=== PATIENT | female | born 1960 | race Caucasian/White ===

== ENCOUNTER 2018-01-31 08:08 | Inpatient (IN) | payer MEDICAID ==
[2018-01-31] VITALS (14 sets, daily range): BP systolic 95–127; BP diastolic 54–64
[~2018-01-31] VITALS: Ht 152.4 cm; Wt 60.3 kg
[2018-01-31 08:42] LABS: HEMATOCRIT 21.9 % (37.0-47.0); MCH 37.3 pg (26.0-34.0); MCHC 36.7 g/dL (28.0-37.0); MCV 101.7 fL (80.0-100.0); MPV 6.1 fl. (7.2-11.1); NUCLEATED RBCS 0 /100WBC; RBC 2.15 mil/uL (4.20-5.00); RDW-CV 15.9 % (10.5-14.5); WBC 9.6 thou/uL (4.0-11.0)
[2018-01-31 08:55] LABS: ANION GAP 13 mmol/L (7-16); BUN 19 mg/dL (7-18); CALCIUM 8.8 mg/dL (8.5-10.1); CHLORIDE 107 mmol/L (98-107); CO2 20 mmol/L (21-32); GLUCOSE 103 mg/dL (70-99); SODIUM 140 mmol/L (136-145)
[2018-01-31 08:57] LABS: POTASSIUM 3.2 mmol/L (3.5-5.1)
[2018-01-31 08:58] LABS: APTT 27.8 Seconds (25.0-31.3); INR 1.4; PROTIME 14.2 Seconds (9.20-11.50)
[2018-01-31 09:06] LABS: ALBUMIN 3.2 g/dL (3.4-5.0); ALKALINE PHOSPHATASE 92 U/L (46-116); AMMONIA 50 umol/L (11-32); MAGNESIUM 1.1 mg/dL (1.8-2.4); SGOT 55 U/L (15-37); SGPT 28 U/L (30-65); TOTAL BILIRUBIN 9.6 mg/dL (<0.1-1.0); TOTAL PROTEIN 6.6 g/dL (6.4-8.2); TROPONIN-I LEVEL <0.06 ng/mL (<0.06)
[2018-01-31 09:37] LABS: BE -4.3 mmol/L (-2 to +3); HCO3 17.7 mmol/L (22.0-26.0); PO2 79.3 mmHg (75.0-100.0); pH 7.523 (7.340-7.450)
[2018-01-31 09:52] LABS: ABSOLUTE LYMPHOCYTES 0.5 thou/uL (0.8-5.3); ABSOLUTE MONOCYTES 0.2 thou/uL (0.0-1.2); ABSOLUTE NEUTROPHILS 8.9 thou/uL (1.6-8.1)
[2018-01-31 09:53] LABS: HYPOCHROMASIA 1+; PLATELET ESTIMATE DECREASED; POIKILOCYTOSIS 1+
[2018-01-31 10:09] LABS: PLATELET COUNT* 49 thou/uL (150-400)
--- NOTE | 2018-01-31 14:17 | EKG ---
[place] [address] ELECTROCARDIOGRAM REPORT Name: HILARY DUFF Room: [address] ADM IN .R.#: [id number] Admission: 01/31/18 Attend Phys: Obdulia Nowak MD Discharge: Date of : 58 Report #: [id number] THIS REPORT FOR: //name// [facility] ED Test Date: 2018-01-31 Test Time: 08:34:57 Pat Name: HILARY DUFF Department: Room: [facility] Gender: F Chronic Specialist: : 1960 Requested By: Radha Courtney Order Number: [id number] MD: Parish Luis Measurements Intervals [place] Rate: 111 P: 17 LA: 102 QRS: 2 QRSD: 83 T: 212 QT: 431 QTc: 586 Interpretive Statements Sinus tachycardia LVH w/ repol abnormalities, possible ischemia Prolonged QT interval No previous ECG available for comparison Electronically Signed On 01-31-2018 14:17:33 CDT by Parish Luis [email or web address] <ELECTRONICALLY SIGNED> By: Parish Luis MD, [facility] 01/31/18 1417 3 Parish Luis MD, [facility] /EPI
[2018-01-31 16:22] LABS: HEMATOCRIT 20.8 % (37.0-47.0); HEMOGLOBIN 7.4 gm/dL (12.0-15.0); MCH 36.1 pg (26.0-34.0); MCHC 35.4 g/dL (28.0-37.0); MCV 101.9 fL (80.0-100.0); MPV 6.3 fl. (7.2-11.1); RBC 2.04 mil/uL (4.20-5.00); RDW-CV 15.9 % (10.5-14.5)
[2018-01-31 16:40] LABS: CALCIUM 8.1 mg/dL (8.5-10.1); CREATININE 1.1 mg/dL (0.6-1.3)
[2018-01-31 19:24] LABS: AMP/METHAMP Negative (Negative); BARBITURATES Negative (Negative); BENZODIAZEPINES Negative (Negative); COCAINE Negative (Negative); METHADONE Negative (Negative); OPIATES POSITIVE (Negative); PCP Negative (Negative); THC Negative (Negative); URINE BLOOD TRACE (Negative); URINE CLARITY CLEAR; URINE COLOR DARK YELLOW; URINE GLUCOSE-RANDOM TRACE (Negative); URINE KETONES TRACE (Negative); URINE LEUKOCYTES-REFLEX NEGATIVE (Negative); URINE PROTEIN TRACE (Negative)
[2018-01-31 19:27] LABS: ICTOTEST (BILI CONFIRMATORY) Positive (Negative); URINE BILIRUBIN 2+ (Negative); URINE NITRITE-REFLEX POSITIVE (Negative)
[2018-01-31 19:28] LABS: SQUAMOUS 0-3 Few /LPF (0-3)
[2018-01-31 19:29] LABS: BACTERIA-REFLEX >30 Many /HPF (None Seen); CRYSTALS None Seen /LPF (None Seen); MUCUS None Seen strn/LPF (None Seen); URINE RBC 0-2 Rare /HPF (0-2)
[2018-01-31 19:30] LABS: CASTS None Seen /LPF (None Seen); URINE WBC-REFLEX None Seen /HPF (0-5)
[2018-02-01] VITALS (23 sets, daily range): BP systolic 84–109; BP diastolic 41–62
[2018-02-01 05:27] LABS: HEMATOCRIT 21.3 % (37.0-47.0); HEMOGLOBIN 7.4 gm/dL (12.0-15.0); MCH 35.9 pg (26.0-34.0); MCHC 34.9 g/dL (28.0-37.0); MCV 102.9 fL (80.0-100.0); MPV 6.9 fl. (7.2-11.1); RBC 2.07 mil/uL (4.20-5.00); RDW-CV 16.1 % (10.5-14.5); WBC 27.5 thou/uL (4.0-11.0)
[2018-02-01 05:44] LABS: ALBUMIN 2.7 g/dL (3.4-5.0); CREATININE 1.1 mg/dL (0.6-1.3); MAGNESIUM 1.9 mg/dL (1.8-2.4); POTASSIUM 3.7 mmol/L (3.5-5.1); TOTAL BILIRUBIN 9.6 mg/dL (<0.1-1.0); TOTAL PROTEIN 5.7 g/dL (6.4-8.2)
[2018-02-02] VITALS (18 sets, daily range): BP systolic 96–148; BP diastolic 51–71
[2018-02-02 04:42] LABS: MCH 36.2 pg (26.0-34.0); MCV 100.6 fL (80.0-100.0); RBC 1.75 mil/uL (4.20-5.00); RDW-CV 16.3 % (10.5-14.5); WBC 16.5 thou/uL (4.0-11.0)
[2018-02-02 04:56] LABS: ALBUMIN 2.5 g/dL (3.4-5.0); CALCIUM 8.2 mg/dL (8.5-10.1); CREATININE 0.9 mg/dL (0.6-1.3); MAGNESIUM 1.9 mg/dL (1.8-2.4); POTASSIUM 3.5 mmol/L (3.5-5.1); TOTAL BILIRUBIN 8.1 mg/dL (<0.1-1.0); TOTAL PROTEIN 5.6 g/dL (6.4-8.2)
[2018-02-02 05:30] LABS: HEMOGLOBIN 6.3 gm/dL (12.0-15.0)
[2018-02-02 05:31] LABS: HEMATOCRIT 17.6 % (37.0-47.0)
--- NOTE | 2018-02-02 07:01 | CON ---
[address] [address] CONSULTATION Name: HILARY DUFF Room: [address] IN M.R.#: [id number] Admission: 01/31/18 Attend Phys: Obdulia Nowak MD Discharge: Date of : 58 Report #: [id number] THIS REPORT FOR: //name// CC: FAM unknown Obdulia Nowak [facility] DATE OF SERVICE: 02/01/2018 INFECTIOUS DISEASE CONSULTATION ATTENDING PHYSICIAN: Dr. Nowak. REASON FOR EVALUATION: Gram-negative septicemia. HISTORY OF PRESENT ILLNESS: Chart reviewed, patient examined. This is a 57-year-old woman with end-stage liver disease, presented with abdominal related pain and discomfort as well as fairly profound encephalopathy. She had gone to bed the night before, woke up, generally not feeling well. Did have associated fevers, although she was awake. She was not responsive. Evaluation noted to be jaundiced. Lactic acid was elevated as high as 4.0. CBC show white count increased to 27.5. Blood cultures were collected as part of the admission and now with 1 out of 2 growth of gram-negative rods and started empirically on ceftriaxone and metronidazole. She admits to some moderate degree of abdominal related pain. She is mildly encephalopathic, I believe still. ALLERGIES: None. MEDICATIONS: Include lactulose, fentanyl, rifaximin, Flagyl, ceftriaxone, pantoprazole. PAST MEDICAL HISTORY: History of cirrhosis, apparently on the bases of ethanol although she abstained since 03/2017. She is currently on track for hepatic transplant. SOCIAL HISTORY: No illicit drug use. No tobacco use. FAMILY HISTORY: Noncontributory. REVIEW OF SYSTEMS: Significant pulmonary-related complaints. PHYSICAL EXAMINATION: GENERAL: She is jaundiced, appears chronically ill. She is pleasant, cooperative. VITAL SIGNS: Temperature 98.0, pulse 90, respirations 16, blood pressure 95/48. SKIN: [place] [address] CONSULTATION Name: HILARY DUFF Room: [address] IN [facility].#: [id number] Admission: 01/31/18 Attend Phys: Obdulia Nowak MD Discharge: Date of : 58 Report #: [id number] NECK: Supple. LUNGS: Few scattered crackles at the bases. HEART: Borderline tachycardic, regular. I do not appreciate a murmur. ABDOMEN: Distended, consistent with ascites. There is some tenderness, although there are no peritoneal signs. GENITOURINARY: Deferred. RECTAL: Deferred. LABORATORY DATA: Ultrasound: No evidence of portal hepatic vein thrombosis. No significant ascites. Electrolytes: Sodium 143, potassium 3.7, chloride 111, bicarbonate is 19, anion gap of 13. BUN and creatinine 28 and 1.1. AST of 47, ALT of 2.8, total bilirubin of 9.6, albumin of 2.7, total protein 5.7, ammonia less than 10. CBC: White count of 27.5, H and H 7.4 and 21.3, platelets of 46. Blood cultures now 2 out of 2 with gram-negative rods. Urinalysis: No white cells seen, greater than 30 bacteria. ASSESSMENT AND PLAN: Gram-negative septicemia, unclear source. Biliary tract certainly would be a consideration. I think it is likely genitourinary tract source. We will continue current therapy. It seems as if she has responded to at least some degree. If would worsen, would broaden gram-negative coverage. We will await those and may give us the clue as to the site of origin. She certainly remains tenuous. We have to monitor expectantly. I think lot of the lab abnormalities may be chronic such as the anemia, thrombocytopenia due to the liver failure. I have discussed with the patient and her mother. <ELECTRONICALLY SIGNED> By: Luis Enrique Urbano MD 02/02/18 0701 1525 [id number] Urbano MD /nt
[2018-02-03] VITALS: BP 125/67
[2018-02-03 04:00] VITALS: BP 115/66
[2018-02-03 04:54] LABS: HEMOGLOBIN 7.7 gm/dL (12.0-15.0); MCHC 36.7 g/dL (28.0-37.0); MCV 98.1 fL (80.0-100.0); MPV 6.7 fl. (7.2-11.1); RBC 2.14 mil/uL (4.20-5.00); RDW-CV 15.6 % (10.5-14.5); WBC 8.3 thou/uL (4.0-11.0)
[2018-02-03 06:53] LABS: ALBUMIN 2.4 g/dL (3.4-5.0); CALCIUM 8.1 mg/dL (8.5-10.1); CREATININE 0.7 mg/dL (0.6-1.3); MAGNESIUM 1.6 mg/dL (1.8-2.4); POTASSIUM 3.4 mmol/L (3.5-5.1); TOTAL BILIRUBIN 7.2 mg/dL (<0.1-1.0); TOTAL PROTEIN 5.3 g/dL (6.4-8.2)
[2018-02-03 07:59] VITALS: BP 121/75
[2018-02-03 11:49] VITALS: BP 116/70
[2018-02-03 15:44] VITALS: BP 113/67
[2018-02-03 19:20] VITALS: BP 128/80
[2018-02-03 21:01] LABS: MAGNESIUM 1.4 mg/dL (1.8-2.4); POTASSIUM 3.6 mmol/L (3.5-5.1)
[2018-02-04] VITALS: BP 118/68
[2018-02-04 04:00] VITALS: BP 120/73
[2018-02-04 04:59] LABS: HEMATOCRIT 21.5 % (37.0-47.0); HEMOGLOBIN 8.1 gm/dL (12.0-15.0); MCH 36.1 pg (26.0-34.0); MCHC 37.6 g/dL (28.0-37.0); MCV 96.1 fL (80.0-100.0); MPV 6.3 fl. (7.2-11.1); RBC 2.24 mil/uL (4.20-5.00); RDW-CV 15.9 % (10.5-14.5); WBC 9.3 thou/uL (4.0-11.0)
[2018-02-04 06:09] LABS: ALBUMIN 2.5 g/dL (3.4-5.0); CALCIUM 7.9 mg/dL (8.5-10.1); CREATININE 0.7 mg/dL (0.6-1.3); MAGNESIUM 1.4 mg/dL (1.8-2.4); POTASSIUM 3.5 mmol/L (3.5-5.1); TOTAL BILIRUBIN 7.2 mg/dL (<0.1-1.0)
[2018-02-04 08:15] VITALS: BP 116/65
[2018-02-04 12:00] VITALS: BP 109/67
[2018-02-04 15:46] VITALS: BP 116/67
[2018-02-04 19:20] VITALS: BP 110/71
[2018-02-05] VITALS: BP 123/79
[2018-02-05 04:00] VITALS: BP 123/76
[2018-02-05 04:35] LABS: HEMOGLOBIN 7.9 gm/dL (12.0-15.0); MCH 35.8 pg (26.0-34.0); MCHC 37.6 g/dL (28.0-37.0); MCV 95.3 fL (80.0-100.0); MPV 6.8 fl. (7.2-11.1); RBC 2.21 mil/uL (4.20-5.00); WBC 8.5 thou/uL (4.0-11.0)
[2018-02-05 06:26] LABS: ALBUMIN 2.6 g/dL (3.4-5.0); CALCIUM 8.1 mg/dL (8.5-10.1); CREATININE 0.9 mg/dL (0.6-1.3); MAGNESIUM 1.4 mg/dL (1.8-2.4); POTASSIUM 3.4 mmol/L (3.5-5.1); TOTAL BILIRUBIN 6.8 mg/dL (<0.1-1.0); TOTAL PROTEIN 5.6 g/dL (6.4-8.2)
[2018-02-05 08:15] VITALS: BP 124/78
--- NOTE | 2018-02-05 11:22 | CON ---
[address] [address] CONSULTATION Name: HILARY DUFF Room: [address] IN M.R.#: [id number] Admission: 01/31/18 Attend Phys: Obdulia Nowak MD Discharge: Date of : 58 Report #: [id number] THIS REPORT FOR: //name// CC: FAM unknown Obdulia Nowak [facility] HISTORY OF PRESENT ILLNESS: This is a 57-year-old female with past medical history of end-stage liver disease complicated by encephalopathy, who was brought in because of altered mental status. Although the patient is alert and awake, she is unable to answer questions and there is no family at bedside, therefore history has been me mostly obtained from the chart. It appears that the patient was brought in, as she was acting more confused than her baseline. Her mother who was here previously also reported she was experiencing fevers. PAST MEDICAL HISTORY: As mentioned above. The patient has a history of end-stage liver disease complicated by encephalopathy. The cause of the end-stage liver disease is unknown. I am unable to record any other past medical, social or family history due to the patient's mental status. REVIEW OF SYSTEMS: Unable to obtain review of systems because of the patient's mental status. PHYSICAL EXAMINATION: VITAL SIGNS: T-max of 39.6, otherwise temperature at the time of examination 37.1, pulse 101, respirations 19, blood pressure 120/60, pulse ox 99%. GENERAL: The patient is awake, but unable to respond as to where she is or the time and date. HEENT: Sclerae are icteric. Pupils are equal, round, reactive to light and accommodation. LUNGS: Clear to auscultation. CARDIOVASCULAR: Rate and rhythm regular, S1, S2 present. ABDOMEN: Soft, distended. Mild fluid thrill is present. EXTREMITIES: Warm. There is pitting edema bilaterally. Asterixis present. LABORATORY DATA: Sodium 144, potassium 3.0, chloride 110, bicarbonate 22, BUN 21, creatinine 1.1, total bilirubin 9.6, AST 55, ALT 28, alkaline phosphatase 92. WBC count 18.0, hemoglobin 7, hematocrit 20.8, platelets 37. Creatinine 1.4. IMAGING DATA: Abdominal ultrasound demonstrates small amount of ascites. Chest x-ray demonstrates no acute cardiopulmonary process. Head CT did not show any acute intracranial abnormality. ASSESSMENT AND PLAN: A 57-year-old female with past medical history of end-stage liver disease complicated by encephalopathy and ascites. I would place the patient on rifaximin and lactulose for the encephal[place] [address] CONSULTATION Name: HILARY DUFF Room: [address] IN M.R.#: [id number] Admission: 01/31/18 Attend Phys: bOdulia Nowak MD Discharge: Date of : 58 Report #: [id number] with broad-spectrum antibiotic coverage, blood cultures. I would perform abdominal ultrasound with Dopplers to rule out portal vein thrombosis. Abdominal paracentesis is also recommended to rule out spontaneous bacterial peritonitis. Continue to monitor the patient clinically. <ELECTRONICALLY SIGNED> By: Bran Mukherjee MD 02/05/18 1122 [id number] Mukherjee MD /nt
[2018-02-05 12:08] VITALS: BP 118/68
[2018-02-05 16:07] VITALS: BP 114/73
[2018-02-05 16:48] LABS: MAGNESIUM 1.4 mg/dL (1.8-2.4); POTASSIUM 3.5 mmol/L (3.5-5.1)
[2018-02-05 20:01] VITALS: BP 121/70
[2018-02-06] VITALS: BP 107/67
[2018-02-06 04:00] VITALS: BP 116/77
[2018-02-06 05:38] LABS: HEMATOCRIT 22.7 % (37.0-47.0); HEMOGLOBIN 8.2 gm/dL (12.0-15.0); MCH 35.4 pg (26.0-34.0); MCHC 36.4 g/dL (28.0-37.0); MCV 97.2 fL (80.0-100.0); MPV 6.5 fl. (7.2-11.1); RBC 2.33 mil/uL (4.20-5.00); RDW-CV 15.8 % (10.5-14.5); WBC 7.6 thou/uL (4.0-11.0)
[2018-02-06 06:46] LABS: CALCIUM 8.1 mg/dL (8.5-10.1); CREATININE 0.7 mg/dL (0.6-1.3); POTASSIUM 4.2 mmol/L (3.5-5.1)
[2018-02-06 09:11] VITALS: BP 130/75
[2018-02-06] MEDS ORDERED: ALDACTONE100 MG PO (10:49)
[2018-02-06] MEDS ORDERED: BENTYL 10 MG CA10 M1 PO (10:50)
[2018-02-06] MEDS ORDERED: FOLIC ACID1 MG PO (10:50)
[2018-02-06] MEDS ORDERED: CONSTULOSE10 GM/152 PO (10:51)
[2018-02-06] MEDS ORDERED: LASIX 40 MG TAB40 M2 PO (10:51)
[2018-02-06] MEDS ORDERED: PROTONIX40 M1 PO (10:52)
[2018-02-06] MEDS ORDERED: MAGOX 400400 MG PO (10:52)
[2018-02-06] MEDS ORDERED: KLOR-CON 1010 MEQ PO (10:53)
[2018-02-06] MEDS ORDERED: MULTIVITAMINS1 EAC7 PO (10:54)
[2018-02-06] MEDS ORDERED: CEFDINIR300 MG PO (11:24)
[2018-02-06] MEDS ORDERED: XIFAXAN550 M1 PO (11:25)
[2018-02-06] MEDS ORDERED: GABAPENTIN 100100 MG PO (11:36)
[2018-02-06] MEDS ORDERED: NORCO 5-325 TA1 EACH PO (11:36)
[2018-02-06 12:05] VITALS: BP 130/75
== END 2018-02-06 12:46 | disposition home or self-care (01) | DRG 871 ==
LOC: M.ERS 08:08 → M.TBA-ER 10:40 → M.ICU 10:40 → M.2W 02-02 12:31
PROVIDERS: Internal Medicine; Personal Emergency Response Attendant; ADMIT Internal Medicine
PROC: 30233N1 Transfusion of Nonautologous Red Blood Cells into Peripheral Vein, Percutaneous Approach (ICD-10-PCS; principal; 2018-02-02)
DX: A41.51 Sepsis due to Escherichia coli [E. coli] (principal); G92 Toxic encephalopathy; K70.31 Alcoholic cirrhosis of liver with ascites; K70.40 Alcoholic hepatic failure without coma; R33.9 Retention of urine, unspecified; K70.11 Alcoholic hepatitis with ascites; Z23 Encounter for immunization

== ENCOUNTER 2020-11-14 08:59 | Inpatient (IN) | payer MEDICARE, MEDICAID ==
[~2020-11-14] VITALS: Ht 152.4 cm; Wt 48.1 kg
[~2020-11-14 08:59] MED LIST: ALDACTONE100 MG PO; BENTYL 10 MG CA10 M1 PO; CEFDINIR300 MG PO; CONSTULOSE10 GM/152 PO; FOLIC ACID1 MG PO; GABAPENTIN 100100 MG PO; KLOR-CON 1010 MEQ PO; LASIX 40 MG TAB40 M2 PO; MAGOX 400400 MG PO; MULTIVITAMINS1 EAC7 PO; NORCO 5-325 TA1 EACH PO; PROTONIX40 M1 PO; XIFAXAN550 M1 PO
[2020-11-14 09:02] VITALS: BP 106/59
[2020-11-14 09:38] LABS: ABSOLUTE EOSINOPHILS 0.1 thou/uL (0.0-0.7); ABSOLUTE LYMPHOCYTES 0.5 thou/uL (0.8-5.3); ABSOLUTE MONOCYTES 0.1 thou/uL (0.0-1.2); ABSOLUTE NEUTROPHILS 1.5 thou/uL (1.6-8.1); BASOPHILS 0.3 %; EOSINOPHILS 3.7 %; HEMATOCRIT 24.5 % (37.0-47.0); HEMOGLOBIN 9.1 gm/dL (12.0-15.0); MCH 35.4 pg (26.0-34.0); MCHC 37.3 g/dL (28.0-37.0); MCV 94.8 fL (80.0-100.0); MONOCYTES 5.8 %; MPV 7.2 fl. (7.2-11.1); NUCLEATED RBCS 0 /100WBC; POLYS 66.2 %; RBC 2.58 mil/uL (4.20-5.00); RDW-CV 17.1 % (10.5-14.5); WBC 2.2 thou/uL (4.0-11.0)
[2020-11-14 09:40] LABS: PLATELET COUNT* 25 thou/uL (150-400)
[2020-11-14 09:42] LABS: CALCIUM 8.5 mg/dL (8.5-10.1); CREATININE 1.1 mg/dL (0.6-1.3); POTASSIUM 4.6 mmol/L (3.5-5.1)
[2020-11-14 09:46] LABS: ALBUMIN 3.1 g/dL (3.4-5.0); TOTAL BILIRUBIN 4.2 mg/dL (<0.1-1.0); TOTAL PROTEIN 6.4 g/dL (6.4-8.2)
[2020-11-14 10:02] LABS: HYPOCHROMASIA 1+; PLATELET ESTIMATE DECREASED
[2020-11-14 10:03] LABS: ANISOCYTOSIS Occasional; MICROCYTES Occasional
[2020-11-14 10:45] LABS: APTT 31.5 Seconds (25.0-31.3); INR 1.4; PROTIME 14.3 Seconds (9.20-11.50)
[2020-11-14 11:21] LABS: URINE BILIRUBIN NEGATIVE (Negative); URINE BLOOD NEGATIVE (Negative); URINE CLARITY CLEAR; URINE COLOR YELLOW; URINE GLUCOSE-RANDOM NEGATIVE (Negative); URINE KETONES NEGATIVE (Negative); URINE LEUKOCYTES NEGATIVE (Negative); URINE NITRITE NEGATIVE (Negative); URINE PROTEIN NEGATIVE (Negative)
[2020-11-14 11:31] LABS: AMP/METHAMP Negative (Negative); BARBITURATES Negative (Negative); BENZODIAZEPINES Negative (Negative); COCAINE Negative (Negative); METHADONE Negative (Negative); OPIATES Negative (Negative); PCP Negative (Negative); THC Negative (Negative)
[2020-11-14 15:45] VITALS: BP 109/61
[2020-11-14] MEDS ORDERED: AUGMENTIN 875-1 EACH PO (18:36)
[2020-11-15 01:40] VITALS: BP 109/61
[2020-11-15 02:20] VITALS: BP 110/59
[2020-11-15 06:23] VITALS: BP 126/67
[2020-11-15 09:45] VITALS: BP 120/66
[2020-11-15 11:17] LABS: CALCIUM 8.4 mg/dL (8.5-10.1); POTASSIUM 3.8 mmol/L (3.5-5.1)
[2020-11-15 12:53] LABS: ABSOLUTE EOSINOPHILS 0.1 thou/uL (0.0-0.7); ABSOLUTE LYMPHOCYTES 0.8 thou/uL (0.8-5.3); ABSOLUTE MONOCYTES 0.3 thou/uL (0.0-1.2); ABSOLUTE NEUTROPHILS 2.5 thou/uL (1.6-8.1); WBC 3.7 thou/uL (4.0-11.0)
[2020-11-15 12:55] LABS: BASOPHILS 0.6 %; HEMOGLOBIN 9.6 gm/dL (12.0-15.0); LYMPHOCYTES 22.4 %; MCH 35.6 pg (26.0-34.0); MCV 96.2 fL (80.0-100.0); MONOCYTES 7.5 %; MPV 6.6 fl. (7.2-11.1); NUCLEATED RBCS 0 /100WBC; POLYS 66.5 %; RBC 2.71 mil/uL (4.20-5.00); RDW-CV 17.2 % (10.5-14.5)
[2020-11-15 12:57] LABS: PLATELET COUNT* 28 thou/uL (150-400)
[2020-11-15 14:15] VITALS: BP 132/69
[2020-11-15 18:00] VITALS: BP 155/79
[2020-11-15] MEDS ORDERED: FUROSEMIDE 20 M20 MG PO (21:56)
[2020-11-16] VITALS: BP 123/68
[2020-11-16 04:30] VITALS: BP 125/67
[2020-11-16 07:50] VITALS: BP 131/76
[2020-11-16 12:00] VITALS: BP 141/75
[2020-11-16 13:04] VITALS: BP 141/75
--- NOTE | 2020-11-16 13:56 | EKG ---
[place] [address] ELECTROCARDIOGRAM REPORT Name: HILARY DUFF Room: [address] ADM IN ..#: [id number] Admission: 11/14/20 Attend Phys: Waqas Spence Discharge: Date of : 58 Date of Service: 11/14/20 0906 Report #: [id number] THIS REPORT FOR: //name// [facility] ED Test Date: 2020-11-14 Test Time: 09:06:22 Pat Name: HILARY DUFF Department: Room: [facility] Gender: F Frit Maker: STUDENT : 1960 Requested By: Elvis Bear Order Number: [id number] MD: Hever Obrien Measurements Intervals [place] Rate: 66 P: 11 [place]: 160 QRS: 1 QRSD: 94 T: 21 QT: 432 QTc: 453 Interpretive Statements Sinus rhythm Abnormal R-wave progression, early transition Compared to ECG 01/31/2018 08:34:57 Sinus tachycardia no longer present Possible ischemia no longer present Prolonged QT interval no longer present Electronically Signed On 11-16-2020 13:56:09 CDT by Hever Obrien [email or web address] <ELECTRONICALLY SIGNED> By: Hever Obrien MD, FAC 11/16/20 1356 0906 0906 Hever Obrien MD, FAC /EPI
== END 2020-11-16 14:03 | disposition home or self-care (01) | DRG 871 ==
LOC: M.ERS 08:59 → M.2W 11:36 → M.TBA-ER 11:36 → M.2W 11-15 21:04
PROVIDERS: Emergency Medicine; ADMIT Internal Medicine; ATTEND Internal Medicine
DX: A41.9 Sepsis, unspecified organism (principal); J69.0 Pneumonitis due to inhalation of food and vomit; G93.41 Metabolic encephalopathy; D69.6 Thrombocytopenia, unspecified; E80.6 Other disorders of bilirubin metabolism; E88.09 Other disorders of plasma-protein metabolism, not elsewhere classified; K70.30 Alcoholic cirrhosis of liver without ascites; F10.10 Alcohol abuse, uncomplicated; Z20.822 Contact with and (suspected) exposure to COVID-19; Z79.899 Other long term (current) drug therapy

== ENCOUNTER 2020-11-30 20:46 | Inpatient (IN) | payer MEDICARE, MEDICAID ==
[~2020-11-30] VITALS: Ht 152.4 cm; Wt 52.6 kg
[~2020-11-30 20:46] MED LIST changes: +AUGMENTIN 875-1 EACH PO; +FUROSEMIDE 20 M20 MG PO
[2020-11-30 21:30] VITALS: BP 122/52
[2020-11-30 23:54] LABS: ABSOLUTE EOSINOPHILS 0.1 thou/uL (0.0-0.7); ABSOLUTE LYMPHOCYTES 0.6 thou/uL (0.8-5.3); ABSOLUTE MONOCYTES 0.3 thou/uL (0.0-1.2); ABSOLUTE NEUTROPHILS 2.2 thou/uL (1.6-8.1); BASOPHILS 0.3 %; EOSINOPHILS 1.9 %; HEMATOCRIT 25.2 % (37.0-47.0); HEMOGLOBIN 8.9 gm/dL (12.0-15.0); LYMPHOCYTES 18.1 %; MCH 34.7 pg (26.0-34.0); MCHC 35.4 g/dL (28.0-37.0); MCV 98.1 fL (80.0-100.0); MONOCYTES 8.3 %; MPV 6.9 fl. (7.2-11.1); NUCLEATED RBCS 0 /100WBC; POLYS 71.4 %; RBC 2.57 mil/uL (4.20-5.00); RDW-CV 15.5 % (10.5-14.5); WBC 3.1 thou/uL (4.0-11.0)
[2020-11-30 23:57] LABS: PLATELET COUNT* 20 thou/uL (150-400)
[2020-12-01] VITALS (8 sets, daily range): BP systolic 126–143; BP diastolic 67–81
[2020-12-01 00:03] LABS: APTT 30.6 Seconds (25.0-31.3); INR 1.4; PROTIME 14.3 Seconds (9.20-11.50)
[2020-12-01 00:13] LABS: BE 1.2 mmol/L (-2 to +3); PCO2 VENOUS 33.8 mmHg (41.0-51.0); PO2 VENOUS 141.4 mmHg (35.0-45.0)
[2020-12-01 00:16] LABS: CALCIUM 8.5 mg/dL (8.5-10.1); CREATININE 1.2 mg/dL (0.6-1.3)
[2020-12-01 00:21] LABS: INFLUENZA A ANTIGEN Negative (Negative); INFLUENZA B ANTIGEN Negative (Negative)
[2020-12-01 00:26] LABS: ALBUMIN 3.3 g/dL (3.4-5.0); DIRECT BILIRUBIN 1.9 mg/dL (<0.1-0.3); MAGNESIUM 1.6 mg/dL (1.8-2.4); TOTAL BILIRUBIN 5.3 mg/dL (<0.1-1.0); TOTAL PROTEIN 6.4 g/dL (6.4-8.2)
[2020-12-01 00:51] LABS: URINE BILIRUBIN NEGATIVE (Negative); URINE BLOOD NEGATIVE (Negative); URINE CLARITY CLEAR; URINE COLOR YELLOW; URINE GLUCOSE-RANDOM NEGATIVE (Negative); URINE KETONES NEGATIVE (Negative); URINE LEUKOCYTES-REFLEX NEGATIVE (Negative); URINE NITRITE-REFLEX NEGATIVE (Negative); URINE PROTEIN NEGATIVE (Negative); URINE SPECIFIC GRAVITY 1.015 (1.005-1.030)
[2020-12-01 00:57] LABS: AMP/METHAMP Negative (Negative); BARBITURATES Negative (Negative); BENZODIAZEPINES Negative (Negative); COCAINE Negative (Negative); METHADONE Negative (Negative); OPIATES Negative (Negative); PCP Negative (Negative); THC Negative (Negative)
--- NOTE | 2020-12-01 10:49 | EKG ---
[place] [address] ELECTROCARDIOGRAM REPORT Name: HILARY DUFF Room: [place] [address] ADM IN ..#: [id number] Admission: 12/01/20 Attend Phys: Waqas Spence Discharge: Date of : 58 Date of Service: 11/30/202120 Report #: [id number] THIS REPORT FOR: //name// [facility] ED Test Date: 2020-11-30 Test Time: 21:21:35 Pat Name: HILARY DUFF Department: Room: [facility] Gender: F Forest Firefighter: MAURO : 1960 Requested By: Jules Fitzgerald Order Number: [id number] MD: Parish Luis Measurements Intervals [place] Rate: 81 P: -9 DE: 155 QRS: 5 QRSD: 90 T: 44 QT: 380 QTc: 441 Interpretive Statements Sinus rhythm Borderline T abnormalities, anterior leads Baseline wander in lead(s) V5 Compared to ECG 11/14/2020 09:06:22 T-wave abnormality now present Electronically Signed On 12-01-2020 10:49:34 CDT by Parish Luis [email or web address] <ELECTRONICALLY SIGNED> By: Parish Luis MD, FAC 12/01/20 1049 20 20 Parish Luis MD, FAC /EPI
[2020-12-02 00:56] VITALS: BP 118/65
[2020-12-02 04:34] VITALS: BP 126/70
[2020-12-02 05:04] LABS: CALCIUM 8.4 mg/dL (8.5-10.1)
[2020-12-02 05:06] LABS: INR 1.3
[2020-12-02 05:10] LABS: HEMATOCRIT 23.3 % (37.0-47.0); HEMOGLOBIN 8.5 gm/dL (12.0-15.0); MCH 35.8 pg (26.0-34.0); MCHC 36.7 g/dL (28.0-37.0); MCV 97.5 fL (80.0-100.0); MPV 7.3 fl. (7.2-11.1); RBC 2.39 mil/uL (4.20-5.00); RDW-CV 15.6 % (10.5-14.5); WBC 2.8 thou/uL (4.0-11.0)
[2020-12-02 08:00] VITALS: BP 126/68
[2020-12-02] MEDS ORDERED: PHENERGAN 25 MG25 MG PO (08:57)
[2020-12-02 09:06] VITALS: BP 126/70
--- NOTE | 2020-12-04 16:13 | CON ---
[address] [address] CONSULTATION Name: HILARY DUFF Room: [address] IN [place].#: [id number] Admission: 12/01/20 Attend Phys: Brigida Garsia Discharge: 12/02/20 Date of : 58 Report #: [id number] THIS REPORT FOR: cc: FAM - No family physician/PCP FAM - No family physician/PCP Jovana Goncalves MD ~ DATE OF CONSULTATION: 12/01/2020 HISTORY OF PRESENT ILLNESS: This is a 60-year-old female with history of alcoholic cirrhosis who reports that she has not drank for several years. She sees a farm management supervisor at [facility] and trying to get into liver transplant list. The patient reports that starting yesterday she started having nausea, vomiting symptoms, which has persisted. This prompted her to come to the hospital. Initially, she was confused and obtunded with ammonia levels of 130. She also has thrombocytopenia with platelets of 20,000. The patient reports that she has multiple stools daily mainly because of taking lactulose at home. She denies any hematochezia, melena or hematemesis. PAST MEDICAL HISTORY: Significant for history of alcoholic cirrhosis. She has a history of alcoholism, but does not drink anymore. She also has history of thrombocytopenia associated with her liver disease. ALLERGIES: No known drug allergy. MEDICATIONS: Please refer to MAR. SOCIAL HISTORY: The patient has long history of alcoholism, but has not drank for the past several years. She denies tobaccoism and has been seeing Dr. Zaragoza, Hepatology, in reference to her liver disease. FAMILY HISTORY: Noncontributory. PHYSICAL EXAMINATION: VITAL SIGNS: Blood pressure of 143/73, respirations 18, pulse 83, temperature 97.1. ABDOMEN: Soft, mildly distended. There is positive fluid shift. NEUROLOGIC: The patient is alert and oriented. She was confused earlier. LABORATORY DATA: Reveal sodium of 140, potassium 5.0, BUN is 32, creatinine 1.2, glucose 115, AST is 42, ALT 31, alkaline phosphatase 75. Magnesium is 1.6, lipase 201. Ammonia level as mentioned above was 130. INR 1.4. WBC is 3.1 with hemoglobin of 8.9 and platelets of 20. IMAGING: Abdominal ultrasound [place] [address] CONSULTATION Name: HILARY DUFF Room: [address]#: [id number] Admission: 12/01/20 Attend Phys: Brigida Garsia Discharge: 12/02/20 Date of : 58 Report #: [id number] ASSESSMENT AND PLAN: The patient with history of alcoholic liver disease and thrombocytopenia, who sees a physician at Hepatology and is awaiting being listed for liver transplant. She comes in with symptoms of persistent nausea, vomiting and abdominal pain which started yesterday. Her ammonia level was 130 and she has been started on lactulose, which seems to be helping her. She continues to have nausea and vomiting. She reports to me that her Zofran usually makes her more nauseous. We will discontinue Zofran and give her Phenergan 12.5 mg q. 6 hours. I will also temporarily put her on erythromycin 250 mg IV q. 6 hours. She will need upper endoscopy prior to her discharge. She also will need a therapeutic and diagnostic paracentesis. We will continue to follow up with her closely and make further recommendation based on her progress. <ELECTRONICALLY SIGNED> By: Jovana Goncalves MD 12/04/20 1613 1525 [id number] Goncalves MD /nt
== END 2020-12-02 12:46 | disposition home or self-care (01) | DRG 71 ==
LOC: M.ERS 20:46 → M.2W 12-01 01:12 → M.TBA-ER 12-01 01:12 → M.2W 12-01 14:21
PROVIDERS: Internal Medicine Gastroenterology; Nurse Practitioner Psychiatric/Mental Health; Personal Emergency Response Attendant; ADMIT Internal Medicine; ATTEND Internal Medicine
PROC: 30233R1 Transfusion of Nonautologous Platelets into Peripheral Vein, Percutaneous Approach (ICD-10-PCS; principal; 2020-12-01)
DX: G93.41 Metabolic encephalopathy (principal); J90 Pleural effusion, not elsewhere classified; D61.818 Other pancytopenia; K76.6 Portal hypertension; K72.90 Hepatic failure, unspecified without coma; F10.20 Alcohol dependence, uncomplicated; K70.31 Alcoholic cirrhosis of liver with ascites; D69.6 Thrombocytopenia, unspecified; E88.09 Other disorders of plasma-protein metabolism, not elsewhere classified; E80.6 Other disorders of bilirubin metabolism; D64.9 Anemia, unspecified; N18.9 Chronic kidney disease, unspecified; E83.42 Hypomagnesemia; Z20.822 Contact with and (suspected) exposure to COVID-19; Z79.899 Other long term (current) drug therapy